=== PATIENT | male | born 1990 ===

== ENCOUNTER 2016-06-11 20:41 | Emergency (ER) | payer BC ==
[2016-06-11 21:03] VITALS: BP 140/79; PULSE 103; RESP 16; O2SAT 98
[2016-06-11] MEDS ORDERED: Sodium Chloride 0.9% 1,000 ML IV STA (21:42)
--- NOTE | 2016-06-11 21:46 | ED PDOC ---
HPI: General Adult Time Seen by Provider: 06/11/16 21:38 Chief Complaint (Nursing): Flu-like Symptoms Chief Complaint (Provider): Chills History Per: Patient History/Exam Limitations: no limitations Onset/Duration Of Symptoms: Hrs (since this morning) Have you had recent travel within the past 21 days to any of the following countries: [place], [place], [place] or [place]?: No Current Symptoms Are (Timing): Still Present Severity: Moderate Additional Complaint(s): Toni Singh is a 25 year old male, with no pertinent past medical history, who presents to the ED on 06/11/16 for the evaluation of moderate chills that he has experienced since this morning. Associated "upset stomach" also reported in addition to some nausea, non-bloody diarrhea and a mild amount of light sensitivity/dizziness. Symptoms have grown worse since onset, prompting ED visit. Denies cough or vomiting. Did not receive this year's influenza vaccination. PMD: none Past Medical History Reviewed: Historical Data, Nursing Documentation, Vital Signs Vital Signs: Last Vital Signs Temp 98.4 F 06/11/16 22:34 Pulse 103 H 06/11/16 21:00 Resp 16 06/11/16 21:00 BP 140/79 06/11/16 21:00 Pulse Ox 98 06/11/16 21:54 - Medical History PMH: No Chronic Diseases - Surgical History Surgical History: No Surg Hx - Family History Family History: States: Unknown Family Hx - Immunization History Hx Influenza Vaccination: No - Home Medications Home Medications: Ambulatory Orders Medication Instructions Recorded Ondansetron ODT [Zofran ODT] 4 mg PO QID #20 odt 06/11/16 - Allergies Allergies/Adverse Reactions: Allergies Allergy/AdvReac Type Severity Reaction Status Date / Time No Known Allergies Allergy Verified 06/11/16 21:03 Review of Systems Constitutional: Positive for: Chills Respiratory: Negative for: Cough Gastrointestinal: Positive for: Nausea, Abdominal Pain ("upset stomach"), Diarrhea (non-bloody). Negative for: Vomiting Neurological: Positive for: Dizziness (mild dizziness/light sensitivity) Physical Exam - Reviewed Nursing Documentation Reviewed: Yes Vital Signs Reviewed: Yes - Physical Exam Appears: Positive for: Non-toxic, No Acute Distress Head Exam: Positive for: ATRAUMATIC, NORMOCEPHALIC Skin: Positive for: Normal Color, Warm, Dry Eye Exam: Positive for: Normal appearance Cardiovascular/Chest: Positive for: Regular Rate, Rhythm. Negative for: Murmur Respiratory: Positive for: Normal Breath Sounds. Negative for: Respiratory Distress Gastrointestinal/Abdominal: Positive for: Soft, Tenderness (mild epigastric/RUQ) . Negative for: Mass, Guarding, Rebound Neurologic/Psych: Positive for: Alert, Oriented - Laboratory Results Result Diagrams: 06/11/16 21:58 06/11/16 21:58 - ECG O2 Sat by Pulse Oximetry: 98 (RA) Pulse Ox Interpretation: Normal Medical Decision Making Medical Decision Makin:38 Initial Impression: abdominal pain, nausea, fever Initial Plan: * US Abdomen, Limited * Labs * Lipase * Influenza A B * IV NS 1000ml at 1000mls/hr * Tylenol 975mg PO * Reevaluation Labs normal. Discussed out patient f/u for abnormal liver on CT. Pt reports feeling better. Scribe Attestation: Documented by Kaley Davies, acting as a scribe for Yakelin Adame PA-C. Provider Scribe Attestation: All medical record entries made by the Scribe were at my direction and personally dictated by me. I have reviewed the chart and agree that the record accurately reflects my personal performance of the history, physical exam, medical decision making, and the department course for this patient. I have also personally directed, reviewed, and agree with the discharge instructions and disposition. Disposition - Clinical Impression Clinical Impression: Viral illness - Patient ED Disposition Is Patient to be Admitted: No Counseled Patient/Family Regarding: Diagnosis, Need For Followup, Rx Given - Disposition Referrals: [facility] [Outside] Disposition: Routine/Home Disposition Time: 23:55 Condition: GOOD Additional Instructions: Please f.u with PMD. Return for worsening symptoms. Prescriptions: Ondansetron ODT [Zofran ODT] 4 mg PO QID #20 odt Instructions: Viral Syndrome (ED)
[2016-06-11 22:22] LABS: BASO % 0.4 % (0.0-2.0); EOS % 0.2 % (0.0-4.0); HEMATOCRIT 47.9 % (35.0-51.0); LYMPH # 0.7 K/uL (1.0-4.3); MEAN CELL VOLUME 80.8 fl (80.0-94.0); MEAN CORPUSCULAR HEMOGLOBIN 27.2 pg (27.0-31.0); MEAN CORPUSCULAR HGB CONC 33.6 g/dL (33.0-37.0); MONO # 0.3 K/uL (0.0-0.8); MONO % 3.8 % (0.0-10.0); NEUT # 6.2 K/uL (1.8-7.0); NEUT % 85.6 % (50.0-75.0); NRBC % 0.1 % (0.0-0.0); RED CELL DISTRIBUTION WIDTH 13.5 % (11.5-14.5); WHITE BLOOD COUNT 7.2 K/uL (4.8-10.8)
[2016-06-11 22:26] LABS: ALB/GLOB RATIO 1.1 (1.0-2.1); ALKALINE PHOSPHATASE 85 U/L (38-126); ALT/SGPT 30 U/L (21-72); AST/SGOT 34 U/L (17-59); BILIRUBIN,TOTAL 0.7 mg/dl (0.2-1.3); BLOOD UREA NITROGEN 13 mg/dl (9-20); CALCIUM 9.5 mg/dL (8.4-10.2); CARBON DIOXIDE 26 mmol/L (22-30); CHLORIDE 99 mmol/L (98-107); GFR AFRICAN-AMERICAN > 60; GLUCOSE,RANDOM 98 mg/dL (75-110); LIPASE 56 U/L (23-300); POTASSIUM 4.1 MMOL/L (3.6-5.0); SODIUM 140 mmol/l (132-148); TOTAL PROTEIN 8.7 G/DL (6.3-8.2)
[2016-06-11 22:37] VITALS: TEMP 98.4
--- NOTE | 2016-06-11 23:15 | US ---
EXAM: US Abdomen Limited, Right Upper Quadrant CLINICAL HISTORY: 25 years old, male; Pain; Abdominal pain; Epigastric; Additional info: Epigastric, ruq pain TECHNIQUE: Real-time ultrasound of the right upper quadrant with image documentation. COMPARISON: No relevant prior studies available. FINDINGS: Liver: The liver demonstrates normal size with increased echogenicity. No focal liver lesions. No intrahepatic bile duct dilation. Gallbladder: The gallbladder is normal. No gallstones. Common bile duct: CBD is normal in caliber measuring 0.3 CM. No stones. No dilation. Pancreas: The pancreas is not well-seen due to overlying bowel gas. Right kidney: The right kidney is normal. No stones. No hydronephrosis. Aorta: Visualized aorta and IVC appear unremarkable. IMPRESSION: 1. The pancreas is not well-seen due to overlying bowel gas. 2. Increased liver echogenicity as can be seen in fatty infiltration or hepatocellular disease. 3. Normal gallbladder.
== END 2016-06-12 00:14 | disposition home or self-care (01) ==
LOC: H.ER 20:41
DX: R10.13 Epigastric pain (principal); B34.9 Viral infection, unspecified; R11.0 Nausea; R19.7 Diarrhea, unspecified; R42 Dizziness and giddiness
CPT/HCPCS: 76705; 80053; 83690; 85025; 87804; 96360; 96361; 99282; J2405; J7040